=== PATIENT | female | born 1965 | race Caucasian/White ===

== ENCOUNTER 2021-10-16 14:04 | Inpatient (IN) | payer MEDICAID ==
[2021-10-16] MEDS ORDERED: traZODone 50 MG TAB PO SCH (22:00)
[2021-10-17 07:26] LABS: Basophils % (Auto) 1.1 % (0.0-1.8); Eosinophils # (Auto) 0.3 K/mm3 (0.0-0.4); Eosinophils % (Auto) 7.1 % (0.0-4.3); Hematocrit 36.2 % (30.3-42.9); Lymphocytes # (Auto) 1.5 K/mm3 (1.2-5.4); Lymphocytes % (Auto) 38.1 % (13.4-35.0); Mean Corpuscular HGB Conc 33 % (30-34); Mean Corpuscular Volume 91 fl (79-97); Monocytes # (Auto) 0.4 K/mm3 (0.0-0.8); Monocytes % (Auto) 11.3 % (0.0-7.3); Platelet Count 155 K/mm3 (140-440); Red Blood Count 3.99 M/mm3 (3.65-5.03); Red Cell Distribution Width 13.7 % (13.2-15.2)
[2021-10-17 07:50] LABS: Alanine Aminotransferase 28 units/L (7-56); Albumin 3.6 g/dL (3.9-5); Blood Urea Nitrogen 18 mg/dL (7-17); Chol/HDL Ratio 2.43 %; HDL Cholesterol 46 mg/dL (40-59); Hemolysis Index 0; LDL Cholesterol,Direct 57 mg/dL (50-130)
[2021-10-17 07:51] LABS: BUN/Creatinine Ratio 26
--- NOTE | 2021-10-17 09:47 | History and Physical Report ---
GP History & Physical - History of Present Illness Date of admission: 10/16/21 Date of Examination: 10/17/21 Reason for Admission: Danger to self, Danger to others, Failure of Outpatient Treatment Chief Complaint: Paranoid History of Present Illness: The pt is a 56 yr old female, with history of schizophrenia and depression. Admitted for stabilization. Was admitted from [facility]. Pt The patient has been off her medications for several days. The patients daughter reports that the patient has been delusional of breaking into her car and stealing her medications and money. The patient seen today. Pt is irritable because she reports that she has not been given her medications. She is circumstantial and reports having difficulty in maintaining sleep. Denies depression, Denies SI, HI. [facility] PAST PSYCHIATRIC HISTORY: Diagnoses: schizophrenia, depression Suicide attempts or Self-harm behavior: Denies Prior psychiatric hospitalizations: Yes Substance Abuse history: Cocaine, marijuana Previous psychiatric medications tried: Seroquel Outpatient treatment: Unknown PAST MEDICAL HISTORY: Family Psychiatric History None reported or documented SOCIAL HISTORY Marital Status: Living Arrangements: Lives alone Employment Status: [employer] Access to guns/weapons: Denies Education: 12th grade History of Abuse: Denies Legal History: Denies REVIEW OF SYSTEMS Constitutional: Negative for weight loss ENT: Negative for stridor Respiratory: Negative for cough or hemoptysis All other systems reviewed and are negative MENTAL STATUS General Appearance and Behavior: age appropriate, good eye contact, cooperative, calm, pleasant Cooperation: Cooperative Psychomotor Behavior: within normal limits Mood: irritable Affect and affective range: Congruent with stated mood Thought Process: Circumstantial Thought Content: reality oriented Speech: Normal volume and Regular rate and rhythm Suicidal Ideation: Denies Homicidal Ideation: Denies HI Hallucinations:Denies Delusions: None elicited Impulse Control: Fair Insight and Judgment: Good Memory: Good Attention: Attentive Orientation: alert and oriented Diagnosis: Schizophrenia Treatment Plan Patient will be admitted for inpatient psychiatric evaluation, medication adjustment and close monitoring The patient's behavior, mood, sleep and appetite will be closely monitored. Patient will be enrolled in individual and group therapeutic sessions and encouraged to attend. Patient will be provided with a safe and structured environment. Patient's physical health needs will be addressed by the Hospitalist. Hospitalist Consulted Labs including CBC, CMP, Lipid profile and Hemoglobin A1C ordered Social Assessment will be completed and the Forestry Fire Aide will work with patient and family to ensure a suitable and safe disposition Medication adjustment will be made as clinically indicated Usual Wellness Islam/Preservation: -Continue home meds The patient agreed on the treatment plan, understood the risk, benefit, alternative treatment, potential consequence of no treatment, and gave informed consent. Legal Status: voluntary Reaction to Hospitalization: Accepting Medications and Allergies Medications and Allergies Allergies Allergy/AdvReac Type Severity Reaction Status Date / Time ampicillin Allergy Unknown Unverified 10/16/21 14:07 codeine Allergy Unknown Unverified 10/16/21 14:06 morphine Allergy Unknown Unverified 10/16/21 14:07 Home Medications Medication Instructions Recorded Confirmed Last Taken Type Buspirone HCl [busPIRone] 15 mg PO BID 10/16/21 10/16/21 Unknown History QUEtiapine [SEROquel] 25 mg PO HS 10/16/21 10/16/21 Unknown History Active Meds: Active Medications Trazodone HCl (Trazodone 50 Mg Tab) 50 mg PO QHS MISSY Last Admin: 10/16/21 21:49 Dose: 50 mg Results - Results Labs/Vitals: Laboratory Last Values WBC 3.8 K/mm3 (4.5-11.0) L 10/17/21 07:01 RBC 3.99 M/mm3 (3.65-5.03) 10/17/21 07:01 Hgb 12.0 gm/dl (10.1-14.3) 10/17/21 07:01 Hct 36.2 % (30.3-42.9) 10/17/21 07:01 MCV 91 fl (79-97) 10/17/21 07:01 MCH 30 pg (28-32) 10/17/21 07:01 MCHC 33 % (30-34) 10/17/21 07:01 RDW 13.7 % (13.2-15.2) 10/17/21 07:01 Plt Count 155 K/mm3 (140-440) 10/17/21 07:01 Lymph % (Auto) 38.1 % (13.4-35.0) H 10/17/21 07:01 [place] % (Auto) 11.3 % (0.0-7.3) H 10/17/21 07:01 Eos % (Auto) 7.1 % (0.0-4.3) H 10/17/21 07:01 Baso % (Auto) 1.1 % (0.0-1.8) 10/17/21 07:01 Lymph # (Auto) 1.5 K/mm3 (1.2-5.4) 10/17/21 07:01 [place] # (Auto) 0.4 K/mm3 (0.0-0.8) 10/17/21 07:01 Eos # (Auto) 0.3 K/mm3 (0.0-0.4) 10/17/21 07:01 Baso # (Auto) 0.0 K/mm3 (0.0-0.1) 10/17/21 07:01 Seg Neutrophils % 42.4 % (40.0-70.0) 10/17/21 07:01 Seg Neutrophils # 1.6 K/mm3 (1.8-7.7) L 10/17/21 07:01 Sodium 141 mmol/L (137-145) 10/17/21 07:01 Potassium 3.5 mmol/L (3.6-5.0) L 10/17/21 07:01 Chloride 106.9 mmol/L (98-107) 10/17/21 07:01 Carbon Dioxide 26 mmol/L (22-30) 10/17/21 07:01 Anion Gap 12 mmol/L 10/17/21 07:01 BUN 18 mg/dL (7-17) H 10/17/21 07:01 Creatinine 0.7 mg/dL (0.6-1.2) 10/17/21 07:01 Estimated GFR > 60 ml/min 10/17/21 07:01 BUN/Creatinine Ratio 26 % 10/17/21 07:01 Glucose 102 mg/dL (65-100) H 10/17/21 07:01 Hemoglobin A1c 6.0 % (4-6) 10/17/21 07:01 Calcium 10.0 mg/dL (8.4-10.2) 10/17/21 07:01 Total Bilirubin 0.20 mg/dL (0.1-1.2) 10/17/21 07:01 AST 36 units/L (5-40) 10/17/21 07:01 ALT 28 units/L (7-56) 10/17/21 07:01 Alkaline Phosphatase 102 units/L (35-129) 10/17/21 07:01 Total Protein 5.5 g/dL (6.3-8.2) L 10/17/21 07:01 Albumin 3.6 g/dL (3.9-5) L 10/17/21 07:01 Albumin/Globulin Ratio 1.9 % 10/17/21 07:01 Triglycerides 74 mg/dL (2-149) 10/17/21 07:01 Cholesterol 112 mg/dL (50-199) 10/17/21 07:01 LDL Cholesterol Direct 57 mg/dL (50-130) 10/17/21 07:01 HDL Cholesterol 46 mg/dL (40-59) 10/17/21 07:01 Cholesterol/HDL Ratio 2.43 % 10/17/21 07:01 TSH 1.270 mlU/mL (0.270-4.200) 10/17/21 07:01 Last Vital Signs Temp 98.6 F 10/16/21 22:00 Pulse 75 10/16/21 22:00 Resp 17 10/16/21 22:00 BP 114/69 10/16/21 22:00 Pulse Ox 98 10/16/21 22:00 Physical Examination - Constitutional Vitals: Vital Signs Temp Pulse Resp BP Pulse Ox 98.6 F 75 17 114/69 98 10/16/21 22:00 10/16/21 22:00 10/16/21 22:00 10/16/21 22:00 10/16/21 22:00 Temperature -Last 24 Hours Temperature 98.6 F Mental Status Exam - Vital signs Last Vital Signs Temp 98.6 F 10/16/21 22:00 Pulse 75 10/16/21 22:00 Resp 17 10/16/21 22:00 BP 114/69 10/16/21 22:00 Pulse Ox 98 10/16/21 22:00 Physician Certification - Certification Statement Physician Certification Statement: This is an acknowledgement statement that DIANDRA BUENO is a 56 year old F who requires inpatient psychiatric admission for treatment which could reasonably be expected to improve the patient's condition for Estimated period of time patient will need to remain in the hospital: [ ] Plan for post-hospital care: [ ]
[2021-10-17] MEDS ORDERED: traZODone 50 MG TAB PO PRN (09:48)
[2021-10-17] MEDS ORDERED: NON-FORMULARY EACH (Buspirone Hcl [Buspirone] 15 MG Tablet) PO SCH (10:00)
--- NOTE | 2021-10-17 11:19 | Consultation ---
History of Present Illness - Reason for Consult Consult date: 10/17/21 Medical Management Requesting physician: MAYRA CLAYTON - History of Present Illness 56 YO Female with MDD, Schizophrenia, GUADALUPE admitted to [facility] for psychiatric stabilization. Consult placed by Dr. Clayton for medical management. Patient seen and evaluated in the recreation room. Patient has fever, chills, chest pain, palpitation, productive cough, skin rash, recent contact, known exposure to COVID-19. No reported nursing events. Patient appears to be at baseline level of cognition and function. Past History Past Medical History: other (See HPI) Past Surgical History: No surgical history, Other (Reviewed) Social history: single. denies: smoking, alcohol abuse, prescription drug abuse Family history: hypertension Medications and Allergies Allergies Allergy/AdvReac Type Severity Reaction Status Date / Time ampicillin Allergy Unknown Unverified 10/16/21 14:07 codeine Allergy Unknown Unverified 10/16/21 14:06 morphine Allergy Unknown Unverified 10/16/21 14:07 Home Medications Medication Instructions Recorded Confirmed Last Taken Type Buspirone HCl [busPIRone] 15 mg PO BID 10/16/21 10/16/21 Unknown History QUEtiapine [SEROquel] 25 mg PO HS 10/16/21 10/16/21 Unknown History Active Meds: Active Medications Buspirone HCl (Buspirone 5 Mg Tab) 15 mg PO BID MISSY Quetiapine Fumarate (Quetiapine 25 Mg Tab) 25 mg PO HS MISSY Trazodone HCl (Trazodone 50 Mg Tab) 50 mg PO QHS PRN PRN Reason: Insomnia Review of Systems Constitutional: no weight loss, no weight gain, no fever, no chills Ears, nose, mouth and throat: no ear pain, no ear discharge, no tinnitis, no dec reased hearing, no nose pain, no nasal congestion Breasts: no change in shape, no swelling, no mass Cardiovascular: no orthopnea, no palpitations, no rapid/irregular heart beat, no edema, no syncope Respiratory: no cough, no excessive sputum, no shortness of breath, no dyspnea on exertion Gastrointestinal: no abdominal pain, no nausea, no diarrhea, no change in bowel habits, no hematemesis Genitourinary Female: no pelvic pain, no flank pain, no dysuria, no urinary frequency, no urgency Rectal: no pain, no incontinence, no bleeding Musculoskeletal: no neck stiffness, no neck pain, no arm numbness/tingling, no low back pain, no shooting leg pain Integumentary: no rash, no redness, no sores, no wounds, no jaundice, no blisters Neurological: no head injury, no paralysis, no parathesias, no tingling, no seizures, no syncope, no ataxia Psychiatric: anxiety, depression, irritability, sadness/tearfullness, mood swings Endocrine: no cold intolerance, no polyphagia, no excessive thirst, no polyuria, no flushing Hematologic/Lymphatic: no easy bruising, no easy bleeding Allergic/Immunologic: no urticaria, no allergic rhinitis, no wheezing Exam - Constitutional Vitals: Temp Pulse Resp BP Pulse Ox 98.6 F 75 17 114/69 98 10/16/21 22:00 10/16/21 22:00 10/16/21 22:00 10/16/21 22:00 10/16/21 22:00 General appearance: Present: no acute distress - EENT Eyes: Present: PERRL ENT: hearing intact, clear oral mucosa - Neck Neck: Present: supple, normal ROM - Respiratory Respiratory effort: normal Respiratory: bilateral: CTA - Cardiovascular Heart Sounds: Present: S1 & S2. Absent: rub, click - Extremities Extremities: pulses symmetrical, No edema Peripheral Pulses: within normal limits - Abdominal General gastrointestinal: Present: soft, non-tender, non-distended, normal bowel sounds Female genitourinary: Present: normal - Integumentary Integumentary: Present: clear, warm, dry - Musculoskeletal Musculoskeletal: gait normal, strength equal bilaterally - Psychiatric Psychiatric: appropriate mood/affect, agitated - Neurologic Neurologic: CNII-XII intact, moves all extremities Results - Labs CBC & Chem 7: 10/17/21 07:01 10/17/21 07:01 Labs: Abnormal lab results 10/17/21 10/17/21 Range/Units 07:01 07:01 WBC 3.8 L (4.5-11.0) K/mm3 Lymph % (Auto) 38.1 H (13.4-35.0) % [place] % (Auto) 11.3 H (0.0-7.3) % Eos % (Auto) 7.1 H (0.0-4.3) % Seg Neutrophils # 1.6 L (1.8-7.7) K/mm3 Potassium 3.5 L (3.6-5.0) mmol/L BUN 18 H (7-17) mg/dL Glucose 102 H (65-100) mg/dL Total Protein 5.5 L (6.3-8.2) g/dL Albumin 3.6 L (3.9-5) g/dL Assessment and Plan - Patient Problems (1) Major depression Current Visit: Yes Status: Acute Plan to address problem: Continue medical management, supportive care. (2) Schizophrenia Current Visit: Yes Status: Acute Plan to address problem: Continue medical management, supportive care. (3) Generalized anxiety disorder Current Visit: Yes Status: Acute Plan to address problem: Benzodiazepine therapy as clinically indicated, supportive care (4) Advance care planning Current Visit: Yes Status: Acute Plan to address problem: Disease education conducted, care plan discussed, diagnoses discussed, prognosis discussed, patient is full code, +30 minutes. (5) Preventative health care Current Visit: Yes Status: Acute Plan to address problem: Patient counseled regarding medication compliance, outpatient follow-up with primary care physician for all age and risk factor appropriate screening test. +30 minutes.
[2021-10-17] MEDS: busPIRone 5 MG TAB PO SCH ×2 (15:53→21:26)
[2021-10-17] MEDS: QUEtiapine 25 MG TAB PO SCH (21:26)
--- NOTE | 2021-10-18 08:56 | Progress Note ---
Subjective Date of service: 10/18/21 Subjective Comment: 10/18:The patient seen resting in bed. She is calm and cooperative. The patient reports feel tired, states sleep and appetite as good. She denies any current suicidal/homicidal ideation and denies hallucinations. REVIEW OF SYSTEMS Constitutional: Negative for weight loss ENT: Negative for stridor Respiratory: Negative for cough or hemoptysis All other systems reviewed and are negative MENTAL STATUS General Appearance and Behavior: age appropriate, good eye contact, cooperative, calm, pleasant Cooperation: Cooperative Psychomotor Behavior: within normal limits Mood: calm Affect and affective range: Congruent with stated mood Thought Process: goal directed Thought Content: reality oriented Speech: Normal volume and Regular rate and rhythm Suicidal Ideation: Denies Homicidal Ideation: Denies HI Hallucinations:Denies Delusions: None elicited Impulse Control: Fair Insight and Judgment: Good Memory: Good Attention: Attentive Orientation: alert and oriented Diagnosis: Schizophrenia Treatment Plan Patient will be admitted for inpatient psychiatric evaluation, medication adjustment and close monitoring The patient's behavior, mood, sleep and appetite will be closely monitored. Patient will be enrolled in individual and group therapeutic sessions and encouraged to attend. Patient will be provided with a safe and structured environment. Patient's physical health needs will be addressed by the Hospitalist. Hospitalist Consulted Labs including CBC, CMP, Lipid profile and Hemoglobin A1C ordered Social Assessment will be completed and the Enterprise Application Architect will work with patient and family to ensure a suitable and safe disposition Medication adjustment will be made as clinically indicated Usual Wellness Church/Preservation: -Continue home meds The patient agreed on the treatment plan, understood the risk, benefit, alternative treatment, potential consequence of no treatment, and gave informed consent. Legal Status: voluntary Reaction to Hospitalization: Accepting Medications and Allergies Medications and Allergies Allergies Allergy/AdvReac Type Severity Reaction Status Date / Time ampicillin Allergy Unknown Unverified 10/16/21 14:07 codeine Allergy Unknown Unverified 10/16/21 14:06 morphine Allergy Unknown Unverified 10/16/21 14:07 Home Medications Medication Instructions Recorded Confirmed Last Taken Type Buspirone HCl [busPIRone] 15 mg PO BID 10/16/21 10/16/21 Unknown History QUEtiapine [SEROquel] 25 mg PO HS 10/16/21 10/16/21 Unknown History Active Meds: Active Medications Buspirone HCl (Buspirone 5 Mg Tab) 15 mg PO BID MISSY Last Admin: 10/17/21 21:26 Dose: 15 mg Quetiapine Fumarate (Quetiapine 25 Mg Tab) 25 mg PO HS MISSY Last Admin: 10/17/21 21:26 Dose: 25 mg Trazodone HCl (Trazodone 50 Mg Tab) 50 mg PO QHS PRN PRN Reason: Insomnia Results - Results Labs/Vitals: Laboratory Last Values WBC 3.8 K/mm3 (4.5-11.0) L 10/17/21 07:01 RBC 3.99 M/mm3 (3.65-5.03) 10/17/21 07:01 Hgb 12.0 gm/dl (10.1-14.3) 10/17/21 07:01 Hct 36.2 % (30.3-42.9) 10/17/21 07:01 MCV 91 fl (79-97) 10/17/21 07:01 MCH 30 pg (28-32) 10/17/21 07:01 MCHC 33 % (30-34) 10/17/21 07:01 RDW 13.7 % (13.2-15.2) 10/17/21 07:01 Plt Count 155 K/mm3 (140-440) 10/17/21 07:01 Lymph % (Auto) 38.1 % (13.4-35.0) H 10/17/21 07:01 [place] % (Auto) 11.3 % (0.0-7.3) H 10/17/21 07:01 Eos % (Auto) 7.1 % (0.0-4.3) H 10/17/21 07:01 Baso % (Auto) 1.1 % (0.0-1.8) 10/17/21 07:01 Lymph # (Auto) 1.5 K/mm3 (1.2-5.4) 10/17/21 07:01 [place] # (Auto) 0.4 K/mm3 (0.0-0.8) 10/17/21 07:01 Eos # (Auto) 0.3 K/mm3 (0.0-0.4) 10/17/21 07:01 Baso # (Auto) 0.0 K/mm3 (0.0-0.1) 10/17/21 07:01 Seg Neutrophils % 42.4 % (40.0-70.0) 10/17/21 07:01 Seg Neutrophils # 1.6 K/mm3 (1.8-7.7) L 10/17/21 07:01 Sodium 141 mmol/L (137-145) 10/17/21 07:01 Potassium 3.5 mmol/L (3.6-5.0) L 10/17/21 07:01 Chloride 106.9 mmol/L (98-107) 10/17/21 07:01 Carbon Dioxide 26 mmol/L (22-30) 10/17/21 07:01 Anion Gap 12 mmol/L 10/17/21 07:01 BUN 18 mg/dL (7-17) H 10/17/21 07:01 Creatinine 0.7 mg/dL (0.6-1.2) 10/17/21 07:01 Estimated GFR > 60 ml/min 10/17/21 07:01 BUN/Creatinine Ratio 26 % 10/17/21 07:01 Glucose 102 mg/dL (65-100) H 10/17/21 07:01 Hemoglobin A1c 6.0 % (4-6) 10/17/21 07:01 Calcium 10.0 mg/dL (8.4-10.2) 10/17/21 07:01 Total Bilirubin 0.20 mg/dL (0.1-1.2) 10/17/21 07:01 AST 36 units/L (5-40) 10/17/21 07:01 ALT 28 units/L (7-56) 10/17/21 07:01 Alkaline Phosphatase 102 units/L (35-129) 10/17/21 07:01 Total Protein 5.5 g/dL (6.3-8.2) L 10/17/21 07:01 Albumin 3.6 g/dL (3.9-5) L 10/17/21 07:01 Albumin/Globulin Ratio 1.9 % 10/17/21 07:01 Triglycerides 74 mg/dL (2-149) 10/17/21 07:01 Cholesterol 112 mg/dL (50-199) 10/17/21 07:01 LDL Cholesterol Direct 57 mg/dL (50-130) 10/17/21 07:01 HDL Cholesterol 46 mg/dL (40-59) 10/17/21 07:01 Cholesterol/HDL Ratio 2.43 % 10/17/21 07:01 TSH 1.270 mlU/mL (0.270-4.200) 10/17/21 07:01 Last Vital Signs Temp 97.3 F L 10/17/21 22:00 Pulse 78 10/17/21 22:00 Resp 18 10/17/21 22:00 BP 101/62 10/17/21 22:00 Pulse Ox 99 10/17/21 22:00
[2021-10-18] MEDS: busPIRone 5 MG TAB PO SCH ×2 (11:42→21:34)
--- NOTE | 2021-10-18 16:52 | Progress Note ---
Assessment and Plan - Patient Problems (1) Major depression Current Visit: Yes Status: Acute Plan to address problem: Continue medical management, supportive care. (2) Schizophrenia Current Visit: Yes Status: Acute Plan to address problem: Continue medical management, supportive care. (3) Generalized anxiety disorder Current Visit: Yes Status: Acute Plan to address problem: Benzodiazepine therapy as clinically indicated, supportive care (4) Advance care planning Current Visit: Yes Status: Acute Plan to address problem: Disease education conducted, care plan discussed, diagnoses discussed, prognosis discussed, patient is full code, +30 minutes. (5) Preventative health care Current Visit: Yes Status: Acute Plan to address problem: Patient counseled regarding medication compliance, outpatient follow-up with primary care physician for all age and risk factor appropriate screening test. +30 minutes. Subjective Date of service: 10/18/21 Principal diagnosis: Major depression Interval history: 56 YO Female with MDD, Schizophrenia, GUADALUPE admitted to [facility] for psychiatric stabilization. Consult placed by Dr. Stallings for medical management. Patient seen and evaluated in the recreation room. Patient has fever, chills, chest pain, palpitation, productive cough, skin rash, recent contact, known exposure to COVID-19. No reported nursing events. Patient a ppears to be at baseline level of cognition and function. Objective - Constitutional General appearance: Present: no acute distress, well-nourished - EENT Eyes: PERRL, EOM intact ENT: hearing intact, clear oral mucosa Ears: bilateral: normal - Neck Neck: supple, normal ROM - Respiratory Respiratory effort: normal Respiratory: bilateral: CTA - Breasts Breasts: normal - Cardiovascular Heart rate: 78 Rhythm: regular Heart Sounds: Present: S1 & S2. Absent: gallop, rub Extremities: pulses intact, No edema, normal color, Full ROM - Gastrointestinal General gastrointestinal: Present: soft, non-tender, non-distended, normal bowel sounds - Genitourinary Female genitourinary: normal - Integumentary Integumentary: clear, warm, dry - Musculoskeletal Musculoskeletal: 1, strength equal bilaterally - Neurologic Neurologic: moves all extremities - Psychiatric Psychiatric: memory intact, appropriate mood/affect, intact judgment & insight - Labs CBC & Chem 7: 10/17/21 07:01 10/17/21 07:01
[2021-10-18] MEDS: QUEtiapine 25 MG TAB PO SCH (21:34)
--- NOTE | 2021-10-19 09:30 | Progress Note ---
Subjective - Reason for Consult Consult date: 10/19/21 Reason for consult: paranoia - Chief Complaint Chief complaint: 10/19:The patient seen in her room The patient is irritable,and isolating. She states that she looks a mess and smelling like crap. The patient is denies any current suicidal/homicidal ideation and denies hallucinations. 10/18:The patient seen resting in bed. She is calm and cooperative. The patient reports feel tired, states sleep and appetite as good. She denies any current suicidal/homicidal ideation and denies hallucinations. REVIEW OF SYSTEMS Constitutional: Negative for weight loss ENT: Negative for stridor Respiratory: Negative for cough or hemoptysis All other systems reviewed and are negative MENTAL STATUS General Appearance and Behavior: age appropriate, good eye contact, cooperative, calm, pleasant Cooperation: Cooperative Psychomotor Behavior: within normal limits Mood: Irritable Affect and affective range: Congruent with stated mood Thought Process: goal directed Thought Content: reality oriented Speech: Normal volume and Regular rate and rhythm Suicidal Ideation: Denies Homicidal Ideation: Denies HI Hallucinations:Denies Delusions: None elicited Impulse Control: Fair Insight and Judgment: Good Memory: Good Attention: Attentive Orientation: alert and oriented Diagnosis: Schizophrenia Treatment Plan Patient will be admitted for inpatient psychiatric evaluation, medication adjustment and close monitoring The patient's behavior, mood, sleep and appetite will be closely monitored. Patient will be enrolled in individual and group therapeutic sessions and encouraged to attend. Patient will be provided with a safe and structured environment. Patient's physical health needs will be addressed by the Hospitalist. Hospitalist Consulted Labs including CBC, CMP, Lipid profile and Hemoglobin A1C ordered Social Assessment will be completed and the Truck Railroad And Bus Motor Mechanic will work with patient and family to ensure a suitable and safe disposition Medication adjustment will be made as clinically indicated Usual Wellness Congregational/Preservation: -Continue home meds The patient agreed on the treatment plan, understood the risk, benefit, alternative treatment, potential consequence of no treatment, and gave informed consent. Legal Status: voluntary Reaction to Hospitalization: Accepting Medications and Allergies Mental Status Exam - Vital signs Last Vital Signs Temp 98.2 F 10/18/21 19:21 Pulse 76 10/18/21 19:21 Resp 18 10/18/21 19:21 BP 124/84 10/18/21 19:21 Pulse Ox 97 10/18/21 19:21
[2021-10-19] MEDS: busPIRone 5 MG TAB PO SCH ×2 (11:50→20:59)
[2021-10-19] MEDS: QUEtiapine 25 MG TAB PO SCH ×3 (16:53→21:00)
--- NOTE | 2021-10-20 07:22 | Progress Note ---
Assessment and Plan - Patient Problems (1) Major depression Current Visit: Yes Status: Acute Plan to address problem: Continue medical management, supportive care. (2) Schizophrenia Current Visit: Yes Status: Acute Plan to address problem: Continue medical management, supportive care. (3) Generalized anxiety disorder Current Visit: Yes Status: Acute Plan to address problem: Benzodiazepine therapy as clinically indicated, supportive care (4) Advance care planning Current Visit: Yes Status: Acute Plan to address problem: Disease education conducted, care plan discussed, diagnoses discussed, prognosis discussed, patient is full code, +30 minutes. (5) Preventative health care Current Visit: Yes Status: Acute Plan to address problem: Patient counseled regarding medication compliance, outpatient follow-up with primary care physician for all age and risk factor appropriate screening test. +30 minutes. Subjective Date of service: 10/19/21 Principal diagnosis: Major depression Interval history: 56 YO Female with MDD, Schizophrenia, [place] admitted to [facility] for psychiatric stabilization. Consult placed by Dr. Stallings for medical management. Patient seen and evaluated in the recreation room. Patient has fever, chills, chest pain, palpitation, productive cough, skin rash, recent contact, known exposure to COVID-19. No reported nursing events. Patient a ppears to be at baseline level of cognition and function. Objective - Constitutional Vitals: Vital Signs - 12hr 10/19/21 19:35 Temperature 98.3 F Pulse Rate 75 Respiratory 17 Rate Blood Pressure 112/69 O2 Sat by Pulse 98 Oximetry General appearance: Present: no acute distress, well-nourished - EENT Eyes: PERRL, EOM intact ENT: hearing intact, clear oral mucosa Ears: bilateral: normal - Neck Neck: supple, normal ROM - Respiratory Respiratory effort: normal Respiratory: bilateral: CTA - Breasts Breasts: normal - Cardiovascular Heart rate: 78 Rhythm: regular Heart Sounds: Present: S1 & S2. Absent: gallop, rub Extremities: pulses intact, No edema, normal color, Full ROM - Gastrointestinal General gastrointestinal: Present: soft, non-tender, non-distended, normal bowel sounds - Genitourinary Female genitourinary: normal - Integumentary Integumentary: clear, warm, dry - Musculoskeletal Musculoskeletal: 1, strength equal bilaterally - Neurologic Neurologic: moves all extremities - Psychiatric Psychiatric: memory intact, appropriate mood/affect, intact judgment & insight - Labs CBC & Chem 7: 10/17/21 07:01 10/17/21 07:01
--- NOTE | 2021-10-20 09:34 | Progress Note ---
Subjective Date of service: 10/20/21 Principal diagnosis: Major depression Subjective Comment: 10/20:The patient seen in her room. The patient is still irritable but less talkative. She states she is tired. The patient is denies any current suicidal/homicidal ideation and denies hallucinations. 10/19:The patient seen in her room. The patient is irritable,and isolating. She states that she looks a mess and smelling like crap. The patient is denies any current suicidal/homicidal ideation and denies hallucinations. 10/18:The patient seen resting in bed. She is calm and cooperative. The patient reports feel tired, states sleep and appetite as good. She denies any current suicidal/homicidal ideation and denies hallucinations. REVIEW OF SYSTEMS Constitutional: Negative for weight loss ENT: Negative for stridor Respiratory: Negative for cough or hemoptysis All other systems reviewed and are negative MENTAL STATUS General Appearance and Behavior: age appropriate, good eye contact, cooperative, calm, pleasant Cooperation: Cooperative Psychomotor Behavior: within normal limits Mood: Irritable Affect and affective range: Congruent with stated mood Thought Process: goal directed Thought Content: reality oriented Speech: Normal volume and Regular rate and rhythm Suicidal Ideation: Denies Homicidal Ideation: Denies HI Hallucinations:Denies Delusions: None elicited Impulse Control: Fair Insight and Judgment: Good Memory: Good Attention: Attentive Orientation: alert and oriented Diagnosis: Schizophrenia Treatment Plan Patient will be admitted for inpatient psychiatric evaluation, medication adjustment and close monitoring The patient's behavior, mood, sleep and appetite will be closely monitored. Patient will be enrolled in individual and group therapeutic sessions and encouraged to attend. Patient will be provided with a safe and structured environment. Patient's physical health needs will be addressed by the Hospitalist. Hospitalist Consulted Labs including CBC, CMP, Lipid profile and Hemoglobin A1C ordered Social Assessment will be completed and the Egg Grader will work with patient and family to ensure a suitable and safe disposition Medication adjustment will be made as clinically indicated Usual Wellness Cheondoism/Preservation: -Continue home meds The patient agreed on the treatment plan, understood the risk, benefit, alternative treatment, potential consequence of no treatment, and gave informed consent. Legal Status: voluntary Reaction to Hospitalization: Accepting Medications and Allergies Mental Status Exam Medications and Allergies Allergies Allergy/AdvReac Type Severity Reaction Status Date / Time ampicillin Allergy Unknown Unverified 10/16/21 14:07 codeine Allergy Unknown Unverified 10/16/21 14:06 morphine Allergy Unknown Unverified 10/16/21 14:07 Home Medications Medication Instructions Recorded Confirmed Last Taken Type Buspirone HCl [busPIRone] 15 mg PO BID 10/16/21 10/16/21 Unknown History QUEtiapine [SEROquel] 25 mg PO HS 10/16/21 10/16/21 Unknown History Active Meds: Active Medications Buspirone HCl (Buspirone 5 Mg Tab) 15 mg PO BID [facility] Last Admin: 10/19/21 20:59 Dose: 15 mg Quetiapine Fumarate (Quetiapine 25 Mg Tab) 25 mg PO [facility] Last Admin: 10/19/21 20:59 Dose: 25 mg Quetiapine Fumarate (Quetiapine 25 Mg Tab) 25 mg PO BID [facility] Last Admin: 10/19/21 21:00 Dose: Not Given Trazodone HCl (Trazodone 50 Mg Tab) 50 mg PO QHS PRN PRN Reason: Insomnia Results - Results Labs/Vitals: Laboratory Last Values WBC 3.8 K/mm3 (4.5-11.0) L 10/17/21 07:01 RBC 3.99 M/mm3 (3.65-5.03) 10/17/21 07:01 Hgb 12.0 gm/dl (10.1-14.3) 10/17/21 07:01 Hct 36.2 % (30.3-42.9) 10/17/21 07:01 MCV 91 fl (79-97) 10/17/21 07:01 MCH 30 pg (28-32) 10/17/21 07:01 MCHC 33 % (30-34) 10/17/21 07:01 RDW 13.7 % (13.2-15.2) 10/17/21 07:01 Plt Count 155 K/mm3 (140-440) 10/17/21 07:01 Lymph % (Auto) 38.1 % (13.4-35.0) H 10/17/21 07:01 [place] % (Auto) 11.3 % (0.0-7.3) H 10/17/21 07:01 Eos % (Auto) 7.1 % (0.0-4.3) H 10/17/21 07:01 Baso % (Auto) 1.1 % (0.0-1.8) 10/17/21 07:01 Lymph # (Auto) 1.5 K/mm3 (1.2-5.4) 10/17/21 07:01 [place] # (Auto) 0.4 K/mm3 (0.0-0.8) 10/17/21 07:01 Eos # (Auto) 0.3 K/mm3 (0.0-0.4) 10/17/21 07:01 Baso # (Auto) 0.0 K/mm3 (0.0-0.1) 10/17/21 07:01 Seg Neutrophils % 42.4 % (40.0-70.0) 10/17/21 07:01 Seg Neutrophils # 1.6 K/mm3 (1.8-7.7) L 10/17/21 07:01 Sodium 141 mmol/L (137-145) 10/17/21 07:01 Potassium 3.5 mmol/L (3.6-5.0) L 10/17/21 07:01 Chloride 106.9 mmol/L (98-107) 10/17/21 07:01 Carbon Dioxide 26 mmol/L (22-30) 10/17/21 07:01 Anion Gap 12 mmol/L 10/17/21 07:01 BUN 18 mg/dL (7-17) H 10/17/21 07:01 Creatinine 0.7 mg/dL (0.6-1.2) 10/17/21 07:01 Estimated GFR > 60 ml/min 10/17/21 07:01 BUN/Creatinine Ratio 26 % 10/17/21 07:01 Glucose 102 mg/dL (65-100) H 10/17/21 07:01 Hemoglobin A1c 6.0 % (4-6) 10/17/21 07:01 Calcium 10.0 mg/dL (8.4-10.2) 10/17/21 07:01 Total Bilirubin 0.20 mg/dL (0.1-1.2) 10/17/21 07:01 AST 36 units/L (5-40) 10/17/21 07:01 ALT 28 units/L (7-56) 10/17/21 07:01 Alkaline Phosphatase 102 units/L (35-129) 10/17/21 07:01 Total Protein 5.5 g/dL (6.3-8.2) L 10/17/21 07:01 Albumin 3.6 g/dL (3.9-5) L 10/17/21 07:01 Albumin/Globulin Ratio 1.9 % 10/17/21 07:01 Triglycerides 74 mg/dL (2-149) 10/17/21 07:01 Cholesterol 112 mg/dL (50-199) 10/17/21 07:01 LDL Cholesterol Direct 57 mg/dL (50-130) 10/17/21 07:01 HDL Cholesterol 46 mg/dL (40-59) 10/17/21 07:01 Cholesterol/HDL Ratio 2.43 % 10/17/21 07:01 TSH 1.270 mlU/mL (0.270-4.200) 10/17/21 07:01 Last Vital Signs Temp 98.3 F 10/19/21 19:35 Pulse 75 10/19/21 19:35 Resp 17 10/19/21 19:35 BP 112/69 10/19/21 19:35 Pulse Ox 98 10/19/21 19:35
[2021-10-20] MEDS: busPIRone 5 MG TAB PO SCH ×2 (10:19→21:08)
[2021-10-20] MEDS: QUEtiapine 25 MG TAB PO SCH ×3 (10:20→21:10)
[2021-10-20] MEDS ORDERED: ACETAMINOPHEN 325 MG TAB PO PRN (13:00)
[2021-10-21] MEDS ORDERED: QUEtiapine 25 MG TAB PO SCH (08:00)
--- NOTE | 2021-10-21 09:55 | Progress Note ---
Subjective Date of service: 10/21/21 Principal diagnosis: Major depression Subjective Comment: 10/21: The patient seen in her room. The patient reports feeling "alright." Pt reports feeling "still sleepy from seroquel," reports difficulty waking in AM since starting seroquel- this has been an issue at home as well. Pt didn't want to go to breakfast d/t tiredness. Pt continues to isolate. Pt reports "I'm not depressed," denies SI HI AVH. Buspar reduced to 10 mg BID and seroquel reduced to 25 mg BID. 10/20:The patient seen in her room. The patient is still irritable but less talkative. She states she is tired. The patient is denies any current suicidal/homicidal ideation and denies hallucinations. 10/19:The patient seen in her room. The patient is irritable,and isolating. She states that she looks a mess and smelling like crap. The patient is denies any current suicidal/homicidal ideation and denies hallucinations. 10/18:The patient seen resting in bed. She is calm and cooperative. The patient reports feel tired, states sleep and appetite as good. She denies any current suicidal/homicidal ideation and denies hallucinations. REVIEW OF SYSTEMS Constitutional: Negative for weight loss ENT: Negative for stridor Respiratory: Negative for cough or hemoptysis All other systems reviewed and are negative MENTAL STATUS General Appearance and Behavior: age appropriate, good eye contact, cooperative, calm, pleasant Cooperation: Cooperative Psychomotor Behavior: within normal limits Mood: "alright" Affect and affective range: Congruent with stated mood Thought Process: goal directed Thought Content: reality oriented Speech: Normal volume and Regular rate and rhythm Suicidal Ideation: Denies SI Homicidal Ideation: Denies HI Hallucinations:Denies Delusions: None elicited Impulse Control: Fair Insight and Judgment: Good Memory: Good Attention: Attentive Orientation: alert and oriented Diagnosis: Schizophrenia Treatment Plan Patient will be admitted for inpatient psychiatric evaluation, medication adjustment and close monitoring The patient's behavior, mood, sleep and appetite will be closely monitored. Patient will be enrolled in individual and group therapeutic sessions and encouraged to attend. Patient will be provided with a safe and structured environment. Patient's physical health needs will be addressed by the Hospitalist. Hospitalist Consulted Labs including CBC, CMP, Lipid profile and Hemoglobin A1C ordered Social Assessment will be completed and the Hydraulic Dredge Operator will work with patient and family to ensure a suitable and safe disposition Medication adjustment will be made as clinically indicated Usual Wellness Congregation/Preservation: -Continue home meds The patient agreed on the treatment plan, understood the risk, benefit, alternative treatment, potential consequence of no treatment, and gave informed consent. Legal Status: voluntary Reaction to Hospitalization: Accepting Medications and Allergies Medications and Allergies Allergies Allergy/AdvReac Type Severity Reaction Status Date / Time ampicillin Allergy Hives Verified 10/20/21 20:37 codeine Allergy Nausea Verified 10/20/21 20:37 morphine Allergy Itching Verified 10/20/21 20:37 Home Medications Medication Instructions Recorded Confirmed Last Taken Type Buspirone HCl [busPIRone] 15 mg PO BID 10/16/21 10/16/21 Unknown History QUEtiapine [SEROquel] 25 mg PO HS 10/16/21 10/16/21 Unknown History Active Meds: Active Medications Acetaminophen (Acetaminophen 325 Mg Tab) 650 mg PO Q6H PRN PRN Reason: Pain, Mild (1-3) Last Admin: 10/20/21 15:17 Dose: 650 mg Buspirone HCl (Buspirone 5 Mg Tab) 15 mg PO BID [facility] Last Admin: 10/20/21 21:08 Dose: 15 mg Quetiapine Fumarate (Quetiapine 25 Mg Tab) 25 mg PO HS [facility] Last Admin: 10/20/21 21:09 Dose: 25 mg Quetiapine Fumarate (Quetiapine 25 Mg Tab) 25 mg PO BID@0800,1400 [facility] Trazodone HCl (Trazodone 50 Mg Tab) 50 mg PO QHS PRN PRN Reason: Insomnia Results - Results Labs/Vitals: Laboratory Last Values WBC 3.8 K/mm3 (4.5-11.0) L 10/17/21 07:01 RBC 3.99 M/mm3 (3.65-5.03) 10/17/21 07:01 Hgb 12.0 gm/dl (10.1-14.3) 10/17/21 07:01 Hct 36.2 % (30.3-42.9) 10/17/21 07:01 MCV 91 fl (79-97) 10/17/21 07:01 MCH 30 pg (28-32) 10/17/21 07:01 MCHC 33 % (30-34) 10/17/21 07:01 RDW 13.7 % (13.2-15.2) 10/17/21 07:01 Plt Count 155 K/mm3 (140-440) 10/17/21 07:01 Lymph % (Auto) 38.1 % (13.4-35.0) H 10/17/21 07:01 [place] % (Auto) 11.3 % (0.0-7.3) H 10/17/21 07:01 Eos % (Auto) 7.1 % (0.0-4.3) H 10/17/21 07:01 Baso % (Auto) 1.1 % (0.0-1.8) 10/17/21 07:01 Lymph # (Auto) 1.5 K/mm3 (1.2-5.4) 10/17/21 07:01 [place] # (Auto) 0.4 K/mm3 (0.0-0.8) 10/17/21 07:01 Eos # (Auto) 0.3 K/mm3 (0.0-0.4) 10/17/21 07:01 Baso # (Auto) 0.0 K/mm3 (0.0-0.1) 10/17/21 07:01 Seg Neutrophils % 42.4 % (40.0-70.0) 10/17/21 07:01 Seg Neutrophils # 1.6 K/mm3 (1.8-7.7) L 10/17/21 07:01 Sodium 141 mmol/L (137-145) 10/17/21 07:01 Potassium 3.5 mmol/L (3.6-5.0) L 10/17/21 07:01 Chloride 106.9 mmol/L (98-107) 10/17/21 07:01 Carbon Dioxide 26 mmol/L (22-30) 10/17/21 07:01 Anion Gap 12 mmol/L 10/17/21 07:01 BUN 18 mg/dL (7-17) H 10/17/21 07:01 Creatinine 0.7 mg/dL (0.6-1.2) 10/17/21 07:01 Estimated GFR > 60 ml/min 10/17/21 07:01 BUN/Creatinine Ratio 26 % 10/17/21 07:01 Glucose 102 mg/dL (65-100) H 10/17/21 07:01 Hemoglobin A1c 6.0 % (4-6) 10/17/21 07:01 Calcium 10.0 mg/dL (8.4-10.2) 10/17/21 07:01 Total Bilirubin 0.20 mg/dL (0.1-1.2) 10/17/21 07:01 AST 36 units/L (5-40) 10/17/21 07:01 ALT 28 units/L (7-56) 10/17/21 07:01 Alkaline Phosphatase 102 units/L (35-129) 10/17/21 07:01 Total Protein 5.5 g/dL (6.3-8.2) L 10/17/21 07:01 Albumin 3.6 g/dL (3.9-5) L 10/17/21 07:01 Albumin/Globulin Ratio 1.9 % 10/17/21 07:01 Triglycerides 74 mg/dL (2-149) 10/17/21 07:01 Cholesterol 112 mg/dL (50-199) 10/17/21 07:01 LDL Cholesterol Direct 57 mg/dL (50-130) 10/17/21 07:01 HDL Cholesterol 46 mg/dL (40-59) 10/17/21 07:01 Cholesterol/HDL Ratio 2.43 % 10/17/21 07:01 TSH 1.270 mlU/mL (0.270-4.200) 10/17/21 07:01 Last Vital Signs Temp 97.7 F 10/20/21 18:55 Pulse 69 10/20/21 18:55 Resp 18 10/20/21 18:55 BP 132/74 10/20/21 18:55 Pulse Ox 97 10/20/21 18:55
[2021-10-21] MEDS: QUEtiapine 25 MG TAB PO SCH ×2 (10:59→21:13)
[2021-10-21] MEDS: busPIRone 10 MG TAB PO SCH ×2 (11:04→21:13)
[2021-10-21 19:53] VITALS: BP 124/72
[2021-10-22] MEDS: QUEtiapine 25 MG TAB PO SCH (09:26)
[2021-10-22] MEDS: busPIRone 10 MG TAB PO SCH (09:26)
--- NOTE | 2021-10-22 09:32 | Discharge Summary ---
Providers - Providers Date of Admission: 10/16/21 21:10 Date of discharge: 10/22/21 Attending physician: MAYRA CLAYTON MD 10/16/21 20:06 Consult to Physician [CONS] Routine Comment: Consulting Provider: ZULEMA RAYMOND Physician Instructions: Ps manage condition as per H&P Reason For Exam: New admission Primary care physician: INSURANCE PREMIUM AUDITOR Hospitalization Admitting Diagnosis: F31.10 - BIPOLAR DISORD, CRNT EPISODE MANIC W/O PSYCH FEATURES, UNSP Hospital course: The patient was provided inpatient psychiatric treatment with safe and supportive environment, group/individual therapy, psychiatric medication, medication adjustment, adverse effect monitor, medical evaluation, medical treatment, social service assessment, social support meeting, placement assessment and psycho-education. The patients mood, cognition, behavior, motivation, compliance to treatment and appreciation on family/social support are improved and stabilized. At the time of discharge, the patient had no suicidal ideas, no homicidal ideas, no aggressive thoughts, no endangering behavior and no debilitating adverse effects. The patient agreed on the qiana atment plan, understood the risk, benefit, alternative treatment, potential consequence of no treatment, and gave informed consent. Progress Note: 10/21: The patient seen in her room. The patient reports feeling "alright." Pt reports feeling "still sleepy from seroquel," reports difficulty waking in AM since starting seroquel- this has been an issue at home as well. Pt didn't want to go to breakfast d/t tiredness. Pt continues to isolate. Pt reports "I'm not depressed," denies SI HI AVH. Buspar reduced to 10 mg BID and seroquel reduced to 25 mg BID. 10/20:The patient seen in her room. The patient is still irritable but less talkative. She states she is tired. The patient is denies any current suicidal/homicidal ideation and denies hallucinations. 10/19:The patient seen in her room. The patient is irritable,and isolating. She states that she looks a mess and smelling like crap. The patient is denies any current suicidal/homicidal ideation and denies hallucinations. 10/18:The patient seen resting in bed. She is calm and cooperative. The patient reports feel tired, states sleep and appetite as good. She denies any current suicidal/homicidal ideation and denies hallucinations. Disposition: 30 STILL A PATIENT Allergies/Adverse Reactions: Allergies ampicillin Allergy (Verified 10/20/21 20:37) Hives codeine Allergy (Verified 10/20/21 20:37) Nausea morphine Allergy (Verified 10/20/21 20:37) Itching Vital Signs: Last Vital Signs Temp 98.0 F 10/21/21 19:16 Pulse 64 10/21/21 19:16 Resp 18 10/21/21 19:16 BP 124/72 10/21/21 19:16 Pulse Ox 98 10/21/21 19:16 Last Lab: Laboratory Last Values WBC 3.8 K/mm3 (4.5-11.0) L 10/17/21 07:01 RBC 3.99 M/mm3 (3.65-5.03) 10/17/21 07:01 Hgb 12.0 gm/dl (10.1-14.3) 10/17/21 07:01 Hct 36.2 % (30.3-42.9) 10/17/21 07:01 MCV 91 fl (79-97) 10/17/21 07:01 MCH 30 pg (28-32) 10/17/21 07:01 MCHC 33 % (30-34) 10/17/21 07:01 RDW 13.7 % (13.2-15.2) 10/17/21 07:01 Plt Count 155 K/mm3 (140-440) 10/17/21 07:01 Lymph % (Auto) 38.1 % (13.4-35.0) H 10/17/21 07:01 [place] % (Auto) 11.3 % (0.0-7.3) H 10/17/21 07:01 Eos % (Auto) 7.1 % (0.0-4.3) H 10/17/21 07:01 Baso % (Auto) 1.1 % (0.0-1.8) 10/17/21 07:01 Lymph # (Auto) 1.5 K/mm3 (1.2-5.4) 10/17/21 07:01 [place] # (Auto) 0.4 K/mm3 (0.0-0.8) 10/17/21 07:01 Eos # (Auto) 0.3 K/mm3 (0.0-0.4) 10/17/21 07:01 Baso # (Auto) 0.0 K/mm3 (0.0-0.1) 10/17/21 07:01 Seg Neutrophils % 42.4 % (40.0-70.0) 10/17/21 07:01 Seg Neutrophils # 1.6 K/mm3 (1.8-7.7) L 10/17/21 07:01 Sodium 141 mmol/L (137-145) 10/17/21 07:01 Potassium 3.5 mmol/L (3.6-5.0) L 10/17/21 07:01 Chloride 106.9 mmol/L (98-107) 10/17/21 07:01 Carbon Dioxide 26 mmol/L (22-30) 10/17/21 07:01 Anion Gap 12 mmol/L 10/17/21 07:01 BUN 18 mg/dL (7-17) H 10/17/21 07:01 Creatinine 0.7 mg/dL (0.6-1.2) 10/17/21 07:01 Estimated GFR > 60 ml/min 10/17/21 07:01 BUN/Creatinine Ratio 26 % 10/17/21 07:01 Glucose 102 mg/dL (65-100) H 10/17/21 07:01 Hemoglobin A1c 6.0 % (4-6) 10/17/21 07:01 Calcium 10.0 mg/dL (8.4-10.2) 10/17/21 07:01 Total Bilirubin 0.20 mg/dL (0.1-1.2) 10/17/21 07:01 AST 36 units/L (5-40) 10/17/21 07:01 ALT 28 units/L (7-56) 10/17/21 07:01 Alkaline Phosphatase 102 units/L (35-129) 10/17/21 07:01 Total Protein 5.5 g/dL (6.3-8.2) L 10/17/21 07:01 Albumin 3.6 g/dL (3.9-5) L 10/17/21 07:01 Albumin/Globulin Ratio 1.9 % 10/17/21 07:01 Triglycerides 74 mg/dL (2-149) 10/17/21 07:01 Cholesterol 112 mg/dL (50-199) 10/17/21 07:01 LDL Cholesterol Direct 57 mg/dL (50-130) 10/17/21 07:01 HDL Cholesterol 46 mg/dL (40-59) 10/17/21 07:01 Cholesterol/HDL Ratio 2.43 % 10/17/21 07:01 TSH 1.270 mlU/mL (0.270-4.200) 10/17/21 07:01 Core Measure Documentation - Palliative Care Palliative Care/ Comfort Measures: Not Applicable - Core Measures Any of the following diagnoses?: none - VTE Discharge Requirements Deep Vein Thrombosis/Pulmonary Embolism Present on Admission: No Exam - Constitutional Vitals: Temp Pulse Resp BP Pulse Ox 98.0 F 64 18 124/72 98 10/21/21 19:16 10/21/21 19:16 10/21/21 19:16 10/21/21 19:16 10/21/21 19:16 Plan Activity: advance as tolerated Weight Bearing Status: Weight Bear as Tolerated Diet: regular Care Plan Goals: Maintain good and stable mental health. Plan of Treatment: The patient should be compliant with medications, not to use drugs and not to drink alcohol.The patient understands that if suicidal ideas, homicidal ideas, or any endangering thoughts/behavior arise, they should immediately seek for emergent assistance including but not limited to crisis hot line and emergency room. Follow up with outpatient Psychiatrist and PCP within 7 - 14 days of disch arge. Follow up with: PRIMARY CARE, [Primary Care Provider] - 7 Days Prescriptions: busPIRone [Buspar] 10 mg PO BID 30 Days #60 tablet QUEtiapine [SEROquel] 25 mg PO BID 30 Days #60 tablet
== END 2021-10-22 16:15 | disposition home or self-care (01) | DRG 885 ==
LOC: UNDOADMIN 14:04 → 3A 14:04 → 5A 21:10
PROVIDERS: ADMIT Psychiatry & Neurology Psychiatry; ATTEND Psychiatry & Neurology Psychiatry
DX: F20.9 Schizophrenia, unspecified (principal); F32.9 Major depressive disorder, single episode, unspecified; F41.1 Generalized anxiety disorder; Z82.49 Family history of ischemic heart disease and other diseases of the circulatory system; Z88.6 Allergy status to analgesic agent; Z88.5 Allergy status to narcotic agent; Z88.8 Allergy status to other drugs, medicaments and biological substances
CPT/HCPCS: 36415; 80053; 80061; 83036; 84443; 85025; G0378